=== PATIENT | female | born 1985 | race Caucasian/White ===

== ENCOUNTER → 2020-12-05 14:01 | Outpatient (BNVA) | payer MEDICAID, SELFPAY | PROVIDERS: Referring Provider Registered Nurse; Visit Provider Nurse Practitioner Women's Health | DX: O09.899 Supervision of other high risk pregnancies, unspecified trimester (principal); Z3A.00 Weeks of gestation of pregnancy not specified | CPT/HCPCS: 81000 ==

== ENCOUNTER → 2020-12-07 10:18 | Outpatient (BNVA) | payer MEDICAID, SELFPAY | PROVIDERS: Visit Provider Obstetrics & Gynecology | DX: O09.899 Supervision of other high risk pregnancies, unspecified trimester (principal) | CPT/HCPCS: 81000; 87491; 87591; 87661 ==

== ENCOUNTER → 2021-01-04 14:45 | Outpatient (BNVA) | payer MEDICAID, SELFPAY | PROVIDERS: Visit Provider Nurse Practitioner Women's Health | DX: O09.899 Supervision of other high risk pregnancies, unspecified trimester (principal); O21.9 Vomiting of pregnancy, unspecified; G43.909 Migraine, unspecified, not intractable, without status migrainosus; E28.2 Polycystic ovarian syndrome; O34.219 Maternal care for unspecified type scar from previous cesarean delivery; O99.212 Obesity complicating pregnancy, second trimester; O26.899 Other specified pregnancy related conditions, unspecified trimester; Z67.91 Unspecified blood type, Rh negative | CPT/HCPCS: 82105; 84315 ==

== ENCOUNTER → 2021-01-11 09:10 | Outpatient (BNVA) | payer MEDICAID, SELFPAY | PROVIDERS: Visit Provider Obstetrics & Gynecology | DX: O09.899 Supervision of other high risk pregnancies, unspecified trimester (principal); Z3A.00 Weeks of gestation of pregnancy not specified | CPT/HCPCS: 82950; 84439; 84443 ==

== ENCOUNTER → 2021-01-28 15:36 | Outpatient (BNVA) | payer MEDICAID, SELFPAY | PROVIDERS: Visit Provider Obstetrics & Gynecology | DX: Z34.92 Encounter for supervision of normal pregnancy, unspecified, second trimester (principal); Z3A.20 20 weeks gestation of pregnancy | CPT/HCPCS: 76805 ==

== ENCOUNTER 2021-01-29 18:29 | Outpatient (CLI) | payer MEDICAID, SELFPAY ==
[2021-01-29] VITALS (13 sets, daily range): BP systolic 128; BP diastolic 67–74; PULSE 66–89; RESP 18; TEMP 36.5; O2SAT 94–98; BMI 42.1
[2021-01-29] MEDS: dextrose 5%-lactated ringers 1,000 ML 999 ML IV ×2 (19:36→20:38)
== END 2021-01-29 21:47 | disposition home or self-care (01) ==
LOC: OPOB 18:36 → OBGYN 18:36
PROVIDERS: Visit Provider Obstetrics & Gynecology
DX: O26.899 Other specified pregnancy related conditions, unspecified trimester (principal); R25.2 Cramp and spasm
CPT/HCPCS: 96366; 99211

== ENCOUNTER → 2021-02-01 13:30 | Outpatient (BNVA) | payer MEDICAID, SELFPAY | PROVIDERS: Visit Provider Obstetrics & Gynecology | DX: O09.899 Supervision of other high risk pregnancies, unspecified trimester (principal); Z3A.00 Weeks of gestation of pregnancy not specified | CPT/HCPCS: 81000 ==

== ENCOUNTER → 2021-02-25 11:44 | Outpatient (BNVA) | payer MEDICAID, SELFPAY | PROVIDERS: Visit Provider Obstetrics & Gynecology | DX: O09.899 Supervision of other high risk pregnancies, unspecified trimester (principal) | CPT/HCPCS: 81000; 82950 ==

== ENCOUNTER → 2021-03-25 13:27 | Outpatient (BNVA) | payer MEDICAID, SELFPAY | PROVIDERS: Visit Provider Obstetrics & Gynecology | DX: O09.899 Supervision of other high risk pregnancies, unspecified trimester (principal) | CPT/HCPCS: 81000 ==

== ENCOUNTER → 2021-03-27 10:40 | Outpatient (BNVA) | payer MEDICAID, SELFPAY | PROVIDERS: Visit Provider Obstetrics & Gynecology | DX: O09.899 Supervision of other high risk pregnancies, unspecified trimester (principal) | CPT/HCPCS: 80500; 85027; 86850; 86870 ==

== ENCOUNTER → 2021-05-06 13:05 | Outpatient (BNVA) | payer MEDICAID, SELFPAY | PROVIDERS: PCP Registered Nurse; Visit Provider Obstetrics & Gynecology | DX: O09.899 Supervision of other high risk pregnancies, unspecified trimester (principal) | CPT/HCPCS: 81000 ==

== ENCOUNTER 2021-05-16 15:30 | Outpatient (CLI) | payer MEDICAID, SELFPAY ==
[2021-05-16] VITALS (34 sets, daily range): BP systolic 110–158; BP diastolic 63–89; PULSE 75–99; RESP 18; TEMP 36.2; O2SAT 96–99; BMI 46.5
[2021-05-16] MEDS: lactated ringers 1,000 ML 999 ML IV (16:27)
[2021-05-16] MEDS: lactated ringers 1,000 ML 125 ML IV (17:55)
[2021-05-16] MEDS: NIFEdipine 10 mg Capsule 30 MG PO (18:09)
== END 2021-05-16 19:00 | disposition home or self-care (01) ==
LOC: OPOB 15:31 → OBGYN 15:33
PROVIDERS: PCP Registered Nurse; Visit Provider Obstetrics & Gynecology
DX: O26.899 Other specified pregnancy related conditions, unspecified trimester (principal); Z3A.00 Weeks of gestation of pregnancy not specified; R10.9 Unspecified abdominal pain
CPT/HCPCS: 59025; 99211

== ENCOUNTER 2021-05-22 19:16 | Outpatient (CLI) | payer MEDICAID, SELFPAY ==
[2021-05-22] VITALS (31 sets, daily range): BP systolic 114–134; BP diastolic 57–80; PULSE 88–118; RESP 15–16; TEMP 36.7; O2SAT 94–97; BMI 46.5
[2021-05-22 19:55] LABS: Bilirubin Urine Neg (Negative); Blood Urine Neg (Negative); Glucose Urine UA Norm (Normal); Ketones Urine 2+ (Negative); Leukocyte Esterase Urine 2+ (Negative); Nitrate Urine Negative (Negative); Protein Urine Trace (Negative); RBC Urine 0-4 /hpf (0-2); Specific Gravity, Urine 1.025 (1.005-1.030); Urine Appearance Clear (CLEAR); Urine Color Yellow (Yellow); Urobilinogen Urine Neg (Negative); pH Urine 5 (5-7)
[2021-05-22 19:56] LABS: Bacteria Urine 2+ /hpf; Mucus Urine 1+ /hpf; Squamous Epithelial Cell Urine 15-25 /hpf (0-5)
[2021-05-22 19:57] LABS: Add Urine Culture? No
[2021-05-22] MEDS: NIFEdipine 10 mg Capsule 30 MG PO (20:25)
[2021-05-22 21:22] LABS: Nitrazine Paper, PH Negative
== END 2021-05-22 22:00 | disposition home or self-care (01) ==
LOC: OPOB 19:16 → OBGYN 19:17
PROVIDERS: PCP Registered Nurse; Visit Provider Obstetrics & Gynecology
DX: O26.899 Other specified pregnancy related conditions, unspecified trimester (principal); Z3A.00 Weeks of gestation of pregnancy not specified; R10.9 Unspecified abdominal pain
CPT/HCPCS: 59025; 81001; 83986; 99211

== ENCOUNTER → 2021-05-24 11:31 | Outpatient (BNVA) | payer MEDICAID, SELFPAY | PROVIDERS: PCP Registered Nurse; Visit Provider Obstetrics & Gynecology | DX: O09.899 Supervision of other high risk pregnancies, unspecified trimester (principal) | CPT/HCPCS: 84315; 87081 ==

== ENCOUNTER 2021-05-28 10:25 | Outpatient (CLI) | payer MEDICAID, SELFPAY ==
[2021-05-28] VITALS (18 sets, daily range): BP systolic 103–130; BP diastolic 58–75; PULSE 71–90; TEMP 36; BMI 46.5
--- NOTE | 2021-05-28 10:51 | US_ITS ---
WS: [id number] UMBILICAL ARTERY DOPPLER MIDDLE CEREBRAL ARTERY DOPPLER BIOPHYSICAL PROFILE AMNIOTIC FLUID HISTORY: Contractions/ Presentation COMPARISON: 05/17/2021 position: Vertex. Cardiac activity: 136 bpm. Cervix: Poorly visualized. Placenta: Fundal, no previa or abruption. Placenta grade: 2 Parameters are as follows: Breathin Movement: 2 Tone: 2 Fluid volume: 2 Amniotic fluid index: 4.5 cm. The largest vertical pocket is 3.1 cm. Waveform analysis: Normal systolic and diastolic velocities. Diastolic velocity remains above the bas matthew. Normal upstroke of waveform. SD ratios: SD ratios range from 2.4 - 2.6 Resistivity indices: 0.6 Middle cerebral artery waveform: SD ratio range 3.5-3.7 peak systolic velocity 36 cm/s. There is stil l minimal forward flow and diastolic velocity as expected. US/US OB BPP wo NST w umb IMPRESSION: 1. Biophysical profile score: 8/8. 2. Oligohydramnios. Amniotic fluid index at 4.5 cm. 3. Normal SD ratio and waveforms in the umbilical artery. 4. SD ratio within the umbilical artery is higher than the umbilical artery whi ch is normal. There is minimal but persistent forward flow in the middle cerebr al artery during diastole which is normal.
[2021-05-28] MEDS: lactated ringers 1,000 ML 999 ML IV (11:42)
[2021-05-28 12:08] LABS: Actim Prom Negative
[2021-05-28 12:41] LABS: Basophils # 0.1 10^3/uL (0.0-0.1); Basophils % 0.4 %; Eosinophils # 0.2 10^3/uL (0.0-0.8); Eosinophils % 1.8 %; Hematocrit 39.5 % (37.0-47.0); Hemoglobin 12.9 g/dL (11.5-15.3); Lymphocytes # 1.3 10^3/uL (0.8-4.8); Lymphocytes % 10.7 %; Mean Corpuscular HGB Conc 32.7 g/dL (30.0-36.0); Mean Corpuscular Hemoglobin 29.8 pg (28.0-34.0); Mean Corpuscular Volume 91.2 fl (81-99); Mean Platelet Volume 10.6 fL (7.4-10.4); Monocytes # 0.8 10^3/uL (0.2-0.9); Monocytes % 6.6 %; Neutrophils # 9.41 10^3/uL (1.8-7.7); Neutrophils % 79.7 %; Nucleated Red Blood Cells % 0 %; Platelet Count 225 10^3/cmm (130-400); Red Blood Count 4.33 10^6/uL (4.1-5.3); Red Cell Distribution Width 13.6 % (12.1-15.1); White Blood Count 11.8 10^3/uL (4.0-10.0)
[2021-05-28 13:41] LABS: Adenovirus Not Detected (NOT DETECT); Chlamydia Pneumoniae Not Detected (NOT DETECT); Coronavirus 229E,HKU1,NL63,OC4 Not Detected (NOT DETECT); Human Metapneumovirus Not Detected (NOT DETECT); Human Rhinovirus/Enterovirus Detected (NOT DETECT); Influenza A Not Detected (NOT DETECT); Influenza A H1 Not Detected (NOT DETECT); Influenza A H1-2009 Not Detected (NOT DETECT); Influenza A H3 Not Detected (NOT DETECT); Influenza B Not Detected (NOT DETECT); Mycoplasma Pneumoniae Not Detected (NOT DETECT); Parainfluenza Virus Type 1 Not Detected (NOT DETECT); Parainfluenza Virus Type 2 Not Detected (NOT DETECT); Parainfluenza Virus Type 3 Not Detected (NOT DETECT); Parainfluenza Virus Type 4 Not Detected (NOT DETECT); Respiratory Syncytial Virus A Not Detected (NOT DETECT); Respiratory Syncytial Virus B Not Detected (NOT DETECT); SARS-COV-2 Not Detected (NOT DETECT)
[2021-05-28 13:57] LABS: Human Metapneumovirus Not Detected (NOT DETECT); Human Rhinovirus/Enterovirus Detected (NOT DETECT); Results from GEN
[2021-05-28] MEDS: alum-mag-hydroxide-sime 30 mL UDC PO (15:10)
== END 2021-05-28 16:48 | disposition home or self-care (01) ==
LOC: OPOB 10:26 → OBGYN 10:28
PROVIDERS: PCP Registered Nurse; Visit Provider Obstetrics & Gynecology
DX: O26.899 Other specified pregnancy related conditions, unspecified trimester (principal); Z3A.00 Weeks of gestation of pregnancy not specified; R10.9 Unspecified abdominal pain
CPT/HCPCS: 59025; 76819; 76820; 84112; 84315; 85025; 86850; 86900; 87635; 87801; 99211

== ENCOUNTER 2021-05-29 14:35 | Inpatient (IN) | payer MEDICAID, SELFPAY ==
[2021-05-29] VITALS (36 sets, daily range): BP systolic 91–147; BP diastolic 56–83; PULSE 59–88; RESP 15–16; TEMP 36–36.7; O2SAT 95–99; BMI 46.5
[2021-05-29] MEDS: lactated ringers 1,000 ML 999 ML IV ×2 (10:42→12:03)
[2021-05-29 10:54] LABS: Add Urine Microscopic? NO; Bilirubin Urine Neg (Negative); Blood Urine Neg (Negative); Glucose Urine UA Norm (Normal); Ketones Urine Negative (Negative); Leukocyte Esterase Urine Negative (Negative); Nitrate Urine Negative (Negative); Protein Urine Neg (Negative); Specific Gravity, Urine 1.005 (1.005-1.030); Urine Appearance Clear (CLEAR); Urine Color Yellow (Yellow); Urobilinogen Urine Norm (Negative); pH Urine 7 (5-7)
[2021-05-29 10:55] LABS: Charge for UA Resulting for Rev
--- NOTE | 2021-05-29 12:18 | US_ITS ---
WS: [id number] ULTRASOUND OB FOCUSED HISTORY: BRITTANI COMPARISON: 05/28/2021 Single intrauterine gestation in vertex position. Cervix is difficult to visualize but does appear cl osed at 4 cm. heart rate at 122 BPM. Amniotic fluid index is 12.9 cm. Largest vertical pocket 5.2 cm. The amount of amniotic fluid has inc reased since the study obtained the prior day. Placenta is posterior and fundal. US/US OB limited [id number] IMPRESSION: 1. Normal amniotic fluid volume at 12.9 cm. The amount of amniotic fluid has i mproved since 05/28/2021. 2. Low normal cardiac activity.
[2021-05-29] MEDS: famotidine 20 mg/2 mL INJ IVP ×2 (15:07)
[2021-05-29] MEDS: citric acid-sodium citrate 30 mL UDC PO (15:08)
--- NOTE | 2021-05-29 15:09 | PM.OPHPUD ---
Labor & Delivery H&P Update Date of Procedure: May 29, 2021 Date H&P Performed: 05/28/21 H&P update information: I have reviewed H&P completed within last 30 days, I have examined patient prior to procedure and Changes to prior documentation as noted here Changes to previous documentation: The patient presents with painful contractions. She had a recpeat scheduled at 39 weeks, but after a good amount of observation, the patient is sherry every 3-4 minutes and reporting that they are painful. We will proceed with repeat . Admission Diagnosis: Preop diagnosis: iup @ 37 weeks, previous , desires repeat. Related Problem List Diagnoses (1) Rh negative status during : (2) Obesity affecting : (3) Previous delivery, antepartum: (4) Supervision of other high-risk :
[2021-05-29 15:18] LABS: Basophils # 0.1 10^3/uL (0.0-0.1); Basophils % 0.5 %; Eosinophils # 0.1 10^3/uL (0.0-0.8); Eosinophils % 1.3 %; Hemoglobin 12.9 g/dL (11.5-15.3); Lymphocytes # 1.3 10^3/uL (0.8-4.8); Lymphocytes % 11.7 %; Mean Corpuscular HGB Conc 32.3 g/dL (30.0-36.0); Mean Corpuscular Hemoglobin 29.7 pg (28.0-34.0); Mean Corpuscular Volume 92.2 fl (81-99); Mean Platelet Volume 10.4 fL (7.4-10.4); Monocytes # 0.5 10^3/uL (0.2-0.9); Monocytes % 4.3 %; Neutrophils # 8.75 10^3/uL (1.8-7.7); Neutrophils % 81.8 %; Nucleated Red Blood Cells % 0 %; Platelet Count 222 10^3/cmm (130-400); Red Blood Count 4.34 10^6/uL (4.1-5.3); Red Cell Distribution Width 13.7 % (12.1-15.1); White Blood Count 10.7 10^3/uL (4.0-10.0)
--- NOTE | 2021-05-29 16:58 | P.OP_ITS ---
Operative Report Date of procedure: May 29, 2021 Pre-op diagnosis: Preop Diagnosis iup @ 37 weeks, contractions, previous , desires repeat. Post-op diagnosis: same Procedure done: repeat Specimens removed/disposition: placenta Surgeon: Radha Carbajal Anesthesia: Other (spinal) Estimated blood loss (mL): 250 IV fluids (mL): 800 Urine output (mL): 100 Complications: none Findings: term male in cephalic presentation Procedure: The patient was taken to the operating room where spinal anesthesia was administered and found to be adequate. She was prepped and draped in the normal sterile fashion in the dorsal supine position with a leftward tilt. A Pfannenstiel skin incision was made and carried down to the underlying layer of fascia. The fascia was nicked in the midline and extended laterally with the Rand scissors. The fascia was then tented up and the rectus muscles dissected off sharply. The rectus muscles were and the peritoneum entered bl untly with the digit. The peritoneal incision was extended superiorly and inferiorly with good visualization of the bladder. The Lobo O retractor was placed. It was clear of any bowel or omentum. The bladder flap was created sharply with the Metzenbaum scissors. A low transverse uterine incision was made and carried down to the bag of water. The bag of water was ruptured and the uterine incision extended cephalocaudad. The scalp was grasped and brought through the incision. The nose and mouth were bulb suctioned. The shoulders and body delivered atraumatically. The baby was allowed to rest, while being dried, for 1 minute and then the cord was clamped and cut. The baby was handed to the waiting drier operator head. The placenta was delivered by expression. The uterus was exteriorized and cleared of all clots and debris. The uterine incision was closed with 0 Vicryl in a running fashion. A second imbricating layer of 3-0 Monocryl was used to close the uterus. The bladder flap was closed with 3-0 Monocryl. There was excellent hemostasis. The Lobo O retractor was removed. The uterus was returned to the abdomen. The peritoneum was closed with 3-0 Monocryl, incorporating the rectus muscle. The fascia was closed with 0 Vicryl in 2 separate sutures overlapping in the midline. The skin was closed with a subcuticular stitch of 2-0 monocryl. Apgars on baby 8 at 1 minute and 9 at 5 minutes. weight 7 pounds 1 ounce. Mother and baby were stable post delivery.
--- NOTE | 2021-05-29 17:40 | ANES.PREANE2 ---
Pre-Anesthetic Assessment Height/Weight: Height 1.68 m Weight 130.635 kg Temp Pulse BP 96.8 F L 86 136/68 05/29/21 10:31 05/29/21 14:29 05/29/21 14:29 Preop Diagnosis: iup @ 37 weeks, previous , desires repeat. Operation Date: 05/29/21 15:20 Proposed Procedures p Section Repeat(Not Applicable) - Radha Carbajal MD Familial anesthetic complications: none Was Beta David taken within 24 hours: N/A Was Clonidine taken within 24 hours: N/A Last intake: Intake Last Liquid Date 05/28/21 Last Liquid Time 20:50 Last Solid Date 05/28/21 Last Solid Time 20:50 Social No alcohol and No tobacco Exam alert, oriented x 3, clear to auscultation bilaterally and regular rate & rhythm Airway Mallampati: Class II Dentition: full Metabolic Morbid Obesity Anesthetic Plan ASA status: 2 Anesthesia: Regional (specify below) Risk of > 500 ml blood loss (7ml/kg in children): Yes, adequate IV access and fluids planned Medications/Allergies Home Medications Medication Instructions Recorded Confirmed Last Taken Type PNV 153-FA 400 mcg-om3 35 mg-dha 1 tab PO DAILY 12/05/20 05/28/21 Unknown History 25 mg-epa 5 mg-fish oil chew tablet ( Gummies) acetaminophen 325 mg capsule 325 mg PO QID PRN 12/07/20 05/28/21 Unknown History (Tylenol) propranolol 10 mg tablet 10 mg PO BID #60 tab 05/06/21 05/28/21 Unknown Rx Allergies Allergy/AdvReac Type Severity Reaction Status Date / Time Sulfa (Sulfonamide Allergy Severe anaphylaxis Verified 05/28/21 09:05 Antibiotics) codeine Allergy Anaphylaxis Verified 05/28/21 09:05 Current Medications Generic Name Dose Route Start Last Admin Trade Name Freq PRN Reason Stop Dose Admin Lactated Ringer's 1,000 mls @ 999 mls/hr 05/29/21 10:30 05/29/21 12:03 Lactated Ringers IV 999 mls/hr .Q1H1M KIMBERLY Administration PFSH Anesthesia Medical History No pertinent past medical history neghx: htn,dm,thyroid,dvt/pe PCP: None PCOS (polycystic ovarian syndrome) Surgical History Hx of section (~2019) Family History Grandmother Breast cancer Maternal--dx age unknown Diabetes Maternal Stroke Maternal Family/Other Colon cancer Maternal Uncle--dx age 30's Heart disease Maternal Uncle Father Hypercholesteremia Hypertension Stroke Mother Hypercholesteremia Hypertension Denies family history of Ovarian cancer Uterine cancer Thyroid disease Female Reproductive History : 3 Data Anesthesia : 05/29/21 14:50 Short CBC 05/29/21 Range/Units 14:50 WBC 10.7 H (4.0-10.0) 10^3/uL Hgb 12.9 (11.5-15.3) g/dL Hct 40.0 (37.0-47.0) % MCV 92.2 (81-99) fl Plt Count 222 (130-400) 10^3/cmm Neut % (Auto) 81.8 % Neut # (Auto) 8.75 H (1.8-7.7) 10^3/uL Urine 05/29/21 Range/Units 10:00 Urine Color Yellow (Yellow) Urine Appearance Clear (CLEAR) Urine pH 7 (5-7) Ur Specific [place] 1.005 (1.005-1.030) Urine Protein Neg (Negative) Urine Glucose (UA) Norm (Normal) Urine Ketones Negative (Negative) Urine Nitrate Negative (Negative) Urine Bilirubin Neg (Negative) Ur Leukocyte Esterase Negative (Negative) Cardiac Studies: No Data to Display
--- NOTE | 2021-05-29 18:00 | ANE.PACU2 ---
Inpatient post-anesthesia follow up: Airway intact: Yes Vital signs: Temperature 97.9 F Pulse Rate 87 Respiratory Rate 17 Blood Pressure 118/76 Pulse Oximetry 98 Oxygen Delivery Me thod Room Air Oxygen Flow Rate Fraction of Inspir ed Oxygen Hydration adequate: Yes Nausea and vomiting: No Pain level: 2 Mental status: Baseline
[2021-05-29] MEDS: dextrose 5%-lactated ringers 1,000 ML 125 ML IV (19:05)
[2021-05-29] MEDS: ketorolac 30 mg/mL INJ IVP (19:05)
[2021-05-29] MEDS: ondansetron 2 mg/ML SDV 2 mL 4 MG IVP (19:51)
[2021-05-29] MEDS: metoclopramide 5 mg/mL SDV 2 mL 10 MG IV (21:40)
[2021-05-30] VITALS (7 sets, daily range): BP systolic 105–122; BP diastolic 65–78; PULSE 67–72; RESP 16–20; TEMP 36.6–36.8; O2SAT 96–98
[2021-05-30] MEDS: ketorolac 30 mg/mL INJ IVP ×2 (01:10→07:19)
[2021-05-30] MEDS: ondansetron 2 mg/ML SDV 2 mL 4 MG IVP (01:10)
[2021-05-30 05:22] LABS: Hematocrit 36.1 % (37.0-47.0); Hemoglobin 11.7 g/dL (11.5-15.3); Mean Corpuscular HGB Conc 32.4 g/dL (30.0-36.0); Mean Corpuscular Hemoglobin 29.6 pg (28.0-34.0); Mean Corpuscular Volume 91.4 fl (81-99); Mean Platelet Volume 10.3 fL (7.4-10.4); Platelet Count 215 10^3/cmm (130-400); Red Blood Count 3.95 10^6/uL (4.1-5.3); Red Cell Distribution Width 13.7 % (12.1-15.1); White Blood Count 11.9 10^3/uL (4.0-10.0)
[2021-05-30] MEDS: alum-mag-hydroxide-sime 30 mL UDC PO (06:44)
[2021-05-30] MEDS: prenatal vitamin Capsule 1 CAP PO (07:21)
[2021-05-30] MEDS: HYDROcodone-acetaminophen 5-325 mg Tablet PO ×2 (09:39→18:28)
[2021-05-30] MEDS: docusate sodium 100 mg Capsule PO ×2 (09:39→18:28)
--- NOTE | 2021-05-30 13:39 | PC.NURSE ---
Addendum entered by Selena Kearns RN 05/30/21 14:11: 1400 answered pt call light, vomited in crib. Bedding and clothing changed. Mother gave more formula. Educated mother on paced bottle feeding and reminded her that cluster feeding at the breast is normal and encouraged and cluster feeding does not mean that baby is not getting enough. Pt verbalized understanding. Original Note: 1130 Answered pt call light. Pt asked for formula to supplement because, I just have enough for him, I've fed him and he just keeps crying like hes starving. Mother was holding , was quiet and sucking on pacifier. Reassured mother that this was normal behavior and that her baby was getting plenty from her. Educated pt that it is common for babies to want to nurse frequently and that it is ok and recommended to feed baby on demand when baby shows signs of hunger. Mother verbalized understanding. 1230 Mother was holding baby and reported that baby ate 15-20 mL of formula. Baby was alert and sucking on pacifier. Suggested that she should nurse baby if he was still acting hungry. 1330 Mother asked nurse to take baby because the pain medicine was making her tired and baby wouldn't settle down. Infant was wide awake, fussy and sucking on pacifier. This nurse swaddled baby and placed baby in crib, baby was rooting around, mother did not want to feed baby so she gave him the pacifier again. 1400 Answered pt call light. I
[2021-05-30] MEDS: ibuprofen 800 mg tablet PO ×2 (16:27→20:27)
--- NOTE | 2021-05-30 17:32 | PM.PN ---
Subjective Subjective: The patient is doing well today. No concerns or questions Vitals/I&O/Wt Last Vital Signs Temp 98.2 F 05/30/21 14:37 Pulse 70 05/30/21 14:37 Resp 20 H 05/30/21 14:37 BP 105/65 05/30/21 14:37 Pulse Ox 98 05/30/21 14:37 05/30/21 05/30/21 05/30/21 06:59 14:59 22:59 Intake Total 0 / 0 Output Total 600 / 1650 Balance -600 / -850 0 / 0 Weight last 48 hrs Weight 288 lb Physical Exam Narrative: The patient is tolerating a regular diet. She is ambulating without difficulty. Pain is well controlled. Lochia is normal. Const: COMMON NORMALS: no acute distress, patient oriented x3, no limitations, healthy appearing, alert and well nourished GENERAL APPEARANCE: cooperative, comfortable, well kempt and well developed ORIENTATION/CONSCIOUSNESS: Yes awake, Yes oriented to person, Yes oriented to place and Yes oriented to time Resp: COMMON NORMALS: normal respiratory effort EFFORT & INSPECTION: Yes able to speak in complete sentences GI: COMMON NORMALS: Soft to palpation and non-tender PALPATION: Yes Soft to palpation Extremity: COMMON NORMALS: no calf tenderness Neuro: COMMON NORMALS: patient oriented x3 SENSORIUM/ORIENTATION: Yes alert, Yes oriented to person, Yes oriented to place and Yes oriented to time Psych: APPEARANCE: Yes well kempt Skin: WOUNDS: Yes surgical site (clean/dry/covered) Urinary Catheter Management: Tavares: Cath Placed During This Visit: yes, but has since been removed by the nurse Reason for Continuing Indwelling Catheter: Decision to DC Catheter Urinary Catheter Date of Insertion: 05/29/21 Urinary Catheter Time of Insertion: 15:44 Date Urinary Catheter Removed: 05/30/21 Time Urinary Catheter Discontinued: 06:30 Data : 05/30/21 05:15 Attestations Medical Necessity Statement*: She will be here two midnights Coding Level of Care Code Acute Software Development Leader for [employer]
[2021-05-30] MEDS: propranolol 20 mg Tablet 10 MG PO (18:31)
[2021-05-31] MEDS: HYDROcodone-acetaminophen 5-325 mg Tablet PO ×3 (00:33→14:26)
[2021-05-31 04:10] VITALS: BP 118/76; PULSE 87; RESP 17; O2SAT 98
[2021-05-31] MEDS: ferrous sulfate EC 325 mg Tablet PO (08:30)
[2021-05-31] MEDS: docusate sodium 100 mg Capsule PO (08:30)
[2021-05-31] MEDS: propranolol 20 mg Tablet 10 MG PO (08:30)
[2021-05-31] MEDS: prenatal vitamin Capsule 1 CAP PO (08:31)
[2021-05-31] MEDS: ibuprofen 800 mg tablet PO ×2 (08:31→14:26)
[2021-05-31 11:52] VITALS: BP 104/63; PULSE 67; RESP 16; TEMP 37.1
--- NOTE | 2021-05-31 12:29 | PM.DCS ---
Discharge Providers Date of Admission: 05/29/21 14:35 Date of Discharge: May 31, 2021 Attending Provider at Admission: Radha Carbajal MD Attending Provider at Discharge: Radha Carbajal MD Primary Care Provider: Stefanie Freitas Diagnoses at Discharge Discharge Diagnosis (1) Rh negative status during : Status: Acute Qualifiers: Trimester: third trimester Qualified Code(s): O26.893 - Other specified related conditions, third trimester; Z67.91 - Unspecified blood type, Rh negative Permanent problem details: A Neg (2) Obesity affecting : Status: Acute Qualifiers: Trimester: second trimester Qualified Code(s): O99.212 - Obesity complicating , second trimester (3) Previous delivery, antepartum: Status: Acute (4) Supervision of other high-risk : Status: Acute Reason for Visit Reason for Visit: Contractions, pressure Hospital Course Hospital Course The patient was admitted for repeat . she did well postoperatively and was ready for discharge on day #2 Physical Exam Const: COMMON NORMALS: no acute distress, patient oriented x3, no limitations, healthy appearing, alert and well nourished GENERAL APPEARANCE: cooperative, comfortable, well kempt and well developed ORIENTATION/CONSCIOUSNESS: Yes awake, Yes oriented to person, Yes oriented to place and Yes oriented to time Resp: COMMON NORMALS: normal respiratory effort EFFORT & INSPECTION: Yes able to speak in complete sentences Extremity: COMMON NORMALS: no calf tenderness Neuro: COMMON NORMALS: patient oriented x3 SENSORIUM/ORIENTATION: Yes alert, Yes oriented to person, Yes oriented to place and Yes oriented to time Psych: APPEARANCE: Yes well kempt Skin: WOUNDS: Yes surgical site (healing nicely) Urinary Catheter Management: Tavares: Cath Placed During This Visit: yes, but has since been removed by the nurse Reason for Continuing Indwelling Catheter: Decision to DC Catheter Urinary Catheter Date of Insertion: 05/29/21 Urinary Catheter Time of Insertion: 15:44 Date Urinary Catheter Removed: 05/30/21 Time Urinary Catheter Discontinued: 06:30 Discharge Data Studies Completed and Pending Completed Studies During Hospitalization Category Date Time Status US OB limited [id number] Stat Ultrasound 05/29/21 12:18 Completed Radiology Impressions Obstetrics Ultrasound 05/29/21 12:18 IMPRESSION: 1. Normal amniotic fluid volume at 12.9 cm. The amount of amniotic fluid has improved since 05/28/2021. 2. Low normal cardiac activity. Laboratory Results WBC 11.9 10^3/uL (4.0-10.0) H 05/30/21 05:15 RBC 3.95 10^6/uL (4.1-5.3) L 05/30/21 05:15 Hgb 11.7 g/dL (11.5-15.3) 05/30/21 05:15 Hct 36.1 % (37.0-47.0) L 05/30/21 05:15 MCV 91.4 fl (81-99) 05/30/21 05:15 MCH 29.6 pg (28.0-34.0) 05/30/21 05:15 MCHC 32.4 g/dL (30.0-36.0) 05/30/21 05:15 RDW 13.7 % (12.1-15.1) 05/30/21 05:15 Plt Count 215 10^3/cmm (130-400) 05/30/21 05:15 MPV 10.3 fL (7.4-10.4) 05/30/21 05:15 Neut % (Auto) 81.8 % 05/29/21 14:50 Lymph % (Auto) 11.7 % 05/29/21 14:50 [place] % (Auto) 4.3 % 05/29/21 14:50 Eos % (Auto) 1.3 % 05/29/21 14:50 Baso % (Auto) 0.5 % 05/29/21 14:50 Neut # (Auto) 8.75 10^3/uL (1.8-7.7) H 05/29/21 14:50 Lymph # (Auto) 1.3 10^3/uL (0.8-4.8) 05/29/21 14:50 [place] # (Auto) 0.5 10^3/uL (0.2-0.9) 05/29/21 14:50 Eos # (Auto) 0.1 10^3/uL (0.0-0.8) 05/29/21 14:50 Baso # (Auto) 0.1 10^3/uL (0.0-0.1) 05/29/21 14:50 Nucleated RBC % (auto) 0 % 05/29/21 14:50 Nucleated RBCs # 0.0 /100WBC 05/29/21 14:50 Urine Color Yellow (Yellow) 05/29/21 10:00 Urine Appearance Clear (CLEAR) 05/29/21 10:00 Urine pH 7 (5-7) 05/29/21 10:00 Ur Specific [place] 1.005 (1.005-1.030) 05/29/21 10:00 Urine Protein Neg (Negative) 05/29/21 10:00 Urine Glucose (UA) Norm (Normal) 05/29/21 10:00 Urine Ketones Negative (Negative) 05/29/21 10:00 Urine Blood Neg (Negative) 05/29/21 10:00 Urine Nitrate Negative (Negative) 05/29/21 10:00 Urine Bilirubin Neg (Negative) 05/29/21 10:00 Urine Urobilinogen Norm mg/dL (Negative) 05/29/21 10:00 Ur Leukocyte Esterase Negative (Negative) 05/29/21 10:00 Blood Type A Negative 05/29/21 14:50 Rho(D) Type Negative 05/29/21 14:50 Antibody Screen Negative 05/29/21 14:50 Screen Negative (Negative) 05/30/21 05:15 Vitals Last Vital Signs Temp 98.7 F 05/31/21 11:52 Pulse 67 05/31/21 11:52 Resp 16 05/31/21 11:52 BP 104/63 05/31/21 11:52 Pulse Ox 98 05/31/21 04:10 Discharge Plan Discharge Patient Disposition: Home Condition: Stable Prescriptions: New ibuprofen 800 mg Tablet 800 mg PO TID Qty: 30 0RF hydrocodone-acetaminophen 5-325 mg Tablet 1 tab PO Q4H PRN (Reason: Moderate To Severe Pain) Qty: 30 0RF docusate sodium 100 mg Capsule 100 mg PO BID Qty: 60 0RF Continued Gummies 400 mcg-35 mg- 25 mg-5 mg tablet,chewable 1 tab PO DAILY 0RF acetaminophen [Tylenol] 325 mg capsule 325 mg PO QID PRN (Reason: Pain, Mild) 0RF propranolol 10 mg tablet 10 mg PO BID Qty: 60 0RF Discharge Orders: Discharge Order (Routine); Ordered 05/31/21 Ordered By: Radha Carbajal Patient Instructions: Depression (DC), Bleeding (DC), Preeclampsia and Eclampsia After Delivery (GEN), OB WHC, OB Discharge Report, OB Food/Drug Interaction Guide, OB Care at Home, Opioid Safety Discharge Attestations Time Spent in Discharge Care*: less than 30 min Quality Metrics Clinical Quality Measures [ No reported AMI, CVA or VTE this stay] Coding Level of Care Code Acute Chg FW DC note Diagnoses Rh negative status during O26.893; Z67.91 Trimester: third trimester Obesity affecting O99.212 Trimester: second trimester Previous delivery, antepartum O34.219 Supervision of other high-risk O09.899
[2021-05-31] MEDS: lanolin oint 7 gm 1 APPLIC TOPICAL (15:58)
[2021-05-31 16:00] VITALS: BP 133/83; PULSE 80; RESP 16; TEMP 36.8
== END 2021-05-31 16:10 | disposition home or self-care (01) | DRG 787 ==
LOC: OPOB 14:35 → OBGYN 14:35
PROVIDERS: Admitting Provider Obstetrics & Gynecology; PCP Registered Nurse; Visit Provider Obstetrics & Gynecology
PROC: 10D00Z1 Extraction of Products of Conception, Low, Open Approach (ICD-10-PCS; CPT 59514; principal; 2021-05-29 15:20)
DX: O34.219 Maternal care for unspecified type scar from previous cesarean delivery (principal); O36.0930 Maternal care for other rhesus isoimmunization, third trimester, not applicable or unspecified; Z3A.39 39 weeks gestation of pregnancy; Z37.0 Single live birth; O99.284 Endocrine, nutritional and metabolic diseases complicating childbirth; E28.2 Polycystic ovarian syndrome
CPT/HCPCS: 36415; 51702; 59025; 59409; 76815; 81003; 85025; 85027; 85460; 86850; 86900; 90384; 96374; 96376; 99211; J0690; J1885; J2274; J2370; J2405; J2765; J3490

== ENCOUNTER → 2021-12-16 14:36 | Outpatient (BNVA) | payer MEDICAID, SELFPAY | PROVIDERS: PCP Registered Nurse; Visit Provider Obstetrics & Gynecology | DX: Z36.87 Encounter for antenatal screening for uncertain dates (principal) | CPT/HCPCS: 76815 ==

== ENCOUNTER → 2022-01-10 12:05 | Outpatient (BNVA) | payer MEDICAID, SELFPAY | PROVIDERS: PCP Registered Nurse; Visit Provider Obstetrics & Gynecology | DX: O09.899 Supervision of other high risk pregnancies, unspecified trimester (principal); I10 Essential (primary) hypertension; O26.899 Other specified pregnancy related conditions, unspecified trimester; Z67.91 Unspecified blood type, Rh negative; O20.9 Hemorrhage in early pregnancy, unspecified; O09.91 Supervision of high risk pregnancy, unspecified, first trimester; Z12.4 Encounter for screening for malignant neoplasm of cervix; G43.909 Migraine, unspecified, not intractable, without status migrainosus; Z3A.00 Weeks of gestation of pregnancy not specified | CPT/HCPCS: 80307; 83036; 84315; 85027; 86592; 86762; 86803; 86850; 86900; 87086; 87340; 87491; 87591; 87624; 87806 ==

== ENCOUNTER 2022-01-12 11:15 | Outpatient (CLI) | payer MEDICAID, SELFPAY ==
[2022-01-12 12:01] LABS: Total Volume, Urine 1200 mL
== END 2022-01-12 11:16 | disposition home or self-care (01) ==
PROVIDERS: PCP Registered Nurse; Visit Provider Obstetrics & Gynecology
DX: I10 Essential (primary) hypertension (principal)
CPT/HCPCS: 84156

== ENCOUNTER → 2022-01-13 12:36 | Outpatient (BNVA) | payer MEDICAID, SELFPAY | PROVIDERS: PCP Registered Nurse; Visit Provider Obstetrics & Gynecology | DX: Z36.87 Encounter for antenatal screening for uncertain dates (principal) | CPT/HCPCS: 76801 ==

== ENCOUNTER → 2022-01-17 15:18 | Outpatient (BNVA) | payer MEDICAID, SELFPAY | PROVIDERS: PCP Registered Nurse; Visit Provider Obstetrics & Gynecology | DX: O09.899 Supervision of other high risk pregnancies, unspecified trimester (principal); R39.9 Unspecified symptoms and signs involving the genitourinary system; Z3A.00 Weeks of gestation of pregnancy not specified | CPT/HCPCS: 84315; 87086 ==

== ENCOUNTER → 2022-04-09 13:23 | Outpatient (BNVA) | payer MEDICAID, SELFPAY | PROVIDERS: PCP Registered Nurse; Visit Provider Nurse Practitioner Women's Health | DX: O09.899 Supervision of other high risk pregnancies, unspecified trimester (principal); O99.210 Obesity complicating pregnancy, unspecified trimester; Z3A.00 Weeks of gestation of pregnancy not specified | CPT/HCPCS: 82950; 84315 ==